=== PATIENT | male | born 1965 | race African-American/Black ===

== ENCOUNTER 2022-10-15 09:47 | Emergency (ER) | payer MEDICAID ==
[~2022-10-15] VITALS: Ht 175.3 cm; Wt 84.0 kg
[2022-10-15 09:51] VITALS: BP 154/87
[2022-10-15] MEDS ORDERED: IPRATROPIUM BROMIDE (0.02%) 0.5MG/2.5ML NEB HHN STA (09:59)
[2022-10-15] MEDS ORDERED: ALBUTEROL (0.083%) 2.5MG/3ML NEB HHN STA (09:59)
[2022-10-15] MEDS ORDERED: ASPIRIN 81MG TABLET PO ONE (10:00)
[2022-10-15 12:18] LABS: CHLORIDE 101 mEq/L (98-107)
[2022-10-15 12:27] LABS: BASOPHILS % 0.3 % (0.0-2.0); EOSINOPHILS % 0.7 % (0.0-5.0); HEMATOCRIT. 45.1 % (42.0-52.0); HEMOGLOBIN. 15.4 g/dL (14.0-18.0); MEAN CORPUSCULAR VOLUME 87.6 fL (80.0-94.0); MEAN PLATELET VOLUME 8.7 fl (7.4-10.4); MONOCYTES % 5.2 % (2.0-8.0); NEUTROPHILS % 63.8 % (40.0-76.0); PLATELET 269 x1000/uL (130-400); RED BLOOD CELL COUNT 5.15 mill/uL (4.7-6.1)
[2022-10-15] MEDS ORDERED: ASPIRIN 81MG TABLET PO NR (14:45)
[2022-10-15] MEDS ORDERED: ALBU90AE INH (15:19)
== END 2022-10-15 15:35 | disposition home or self-care (01) ==
LOC: ER 09:47
DX: J40 Bronchitis, not specified as acute or chronic (principal); E11.65 Type 2 diabetes mellitus with hyperglycemia; I10 Essential (primary) hypertension; Z79.899 Other long term (current) drug therapy
CPT/HCPCS: 36415; 71045; 80053; 83880; 84484; 85025; 93005; 94640; 99285; Z7610

== ENCOUNTER 2023-09-03 09:47 | Emergency (ER) | payer MEDICAID ==
[~2023-09-03] VITALS: Ht 172.7 cm; Wt 81.0 kg
[~2023-09-03 09:47] MED LIST: ALBU90AE INH
[2023-09-03 09:51] VITALS: O2SAT 98
[2023-09-03] MEDS ORDERED: ACETAMINOPHEN 325MG TABLET PO STA (12:02)
[2023-09-03] MEDS ORDERED: BACITRACIN ZINC OINT UDPKT TOP ONE (12:15)
[2023-09-03 14:19] LABS: CLARITY URINE CLEAR (CLEAR); COLOR URINE YELLOW (YELLOW); GLUCOSE URINE 3+ (NEGATIVE); KETONES URINE TRACE (NEGATIVE); LEUKOCYTE ESTERASE URINE NEGATIVE (NEGATIVE); NITRITE URINE NEGATIVE (NEGATIVE); OCCULT BLOOD URINE NEGATIVE (NEGATIVE); PH URINE 5.5 (4.5-8.0); PROTEIN URINE NEGATIVE (NEGATIVE); SPECIFIC GRAVITY URINE 1.019 (1.005-1.030)
[2023-09-03 14:34] LABS: SQUAMOUS EPITHELIAL CELL URINE FEW /lpf (RARE/1+)
[2023-09-03 14:35] LABS: BACTERIA URINE TRACE; RBC URINE 0-2 /hpf (0-2)
[2023-09-03] MEDS ORDERED: CLOT15CR27 TP (15:10)
[2023-09-03] MEDS ORDERED: NAPR-681 PO (15:10)
[2023-09-03] MEDS ORDERED: CEPH500C2 MT (15:10)
[2023-09-03 16:17] VITALS: BP 145/98; PULSE 98; RESP 18; TEMP 97.9
[2023-09-06 04:08] LABS: CHLAMYDIA TRACHOMATIS NAA Negative (Negative); NEISSERIA GONORRHOEAE NAA Negative (Negative)
== END 2023-09-03 16:19 | disposition home or self-care (01) ==
LOC: ER 09:47
DX: R51.9 Headache, unspecified (principal); I10 Essential (primary) hypertension; E11.9 Type 2 diabetes mellitus without complications; E78.00 Pure hypercholesterolemia, unspecified
CPT/HCPCS: 36415; 81003; 86592; 87491; 87591; 99283; 99284

== ENCOUNTER 2024-01-19 16:38 | Emergency (ER) | payer MEDICAID, OTHER ==
[~2024-01-19] VITALS: Ht 172.7 cm; Wt 89.0 kg
[~2024-01-19 16:38] MED LIST changes: +CEPH500C2 MT; +CLOT15CR27 TP; +NAPR-681 PO
[2024-01-19 16:41] VITALS: O2SAT 100
[2024-01-19 17:06] LABS: BASOPHILS % 0.8 % (0.0-2.0); EOSINOPHILS % 0.8 % (0.0-5.0); HEMATOCRIT. 40.5 % (42.0-52.0); HEMOGLOBIN. 14.2 g/dL (14.0-18.0); LYMPHOCYTES % 34.4 % (20.0-50.0); MEAN CORPUSCULAR HEMOGLOBIN 32.2 pg (28.0-32.0); MEAN CORPUSCULAR HGB CONC 35.1 g/dL (31.0-37.0); MEAN CORPUSCULAR VOLUME 91.8 fL (80.0-94.0); MONOCYTES % 6.2 % (2.0-8.0); NEUTROPHILS % 57.8 % (40.0-76.0); PLATELET 243 x1000/uL (130-400); RED BLOOD CELL COUNT 4.42 mill/uL (4.7-6.1); RED CELL DISTRIBUTION WIDTH 13.7 % (11.6-14.6); WHITE BLOOD COUNT 5.8 x1000/uL (4.5-11.0)
[2024-01-19 17:11] LABS: CHLORIDE 105 mEq/L (98-107); POTASSIUM 4.1 mEq/L (3.5-5.1); SODIUM 140 mEq/L (136-145)
[2024-01-19 17:12] LABS: CARBON DIOXIDE 28 mEq/L (21-32)
[2024-01-19 17:17] LABS: GLUCOSE 173 mg/dL (70-105); UREA NITROGEN BLOOD 8 mg/dL (9-23)
[2024-01-19 17:32] LABS: TROPONIN I HIGH SENSITIVITY < 4 ng/L (3.0-53)
[2024-01-19] MEDS ORDERED: IPRATROPIUM/ALBUTEROL 0.5-3(2.5)MG/3ML NEB HHN ONE (19:45)
[2024-01-19] MEDS ORDERED: P20 MT (20:20)
[2024-01-19] MEDS ORDERED: TOPUD MT (20:20)
[2024-01-19] MEDS ORDERED: IBUP-1523 MT (20:20)
[2024-01-19] MEDS ORDERED: ALBU90AE INH (20:20)
[2024-01-19] MEDS: PREDNISONE 20MG TABLET PO ONE (20:37)
[2024-01-19 20:38] VITALS: BP 138/80; PULSE 90; RESP 18; TEMP 98.5
[2024-01-19] MEDS: ACETAMINOPHEN 325MG TABLET PO ONE (20:38)
[2024-01-19 20:51] LABS: TROPONIN I HIGH SENSITIVITY < 4 ng/L (3.0-53)
== END 2024-01-19 20:40 | disposition home or self-care (01) ==
LOC: ER 16:38
DX: R07.89 Other chest pain (principal); J45.909 Unspecified asthma, uncomplicated; E11.9 Type 2 diabetes mellitus without complications; E78.00 Pure hypercholesterolemia, unspecified; I10 Essential (primary) hypertension
CPT/HCPCS: 99285; 71045; 80048; 83880; 85025; 84484; 93005; 36415; J7512

== ENCOUNTER 2025-03-07 13:11 | Emergency (ER) | payer OTHER ==
[~2025-03-07] VITALS: Ht 172.7 cm; Wt 95.0 kg
[~2025-03-07 13:11] MED LIST changes: +IBUP-1523 MT; +P20 MT; +TOPUD MT
[2025-03-07 13:16] VITALS: O2SAT 99
[2025-03-07 14:40] VITALS: BP 138/90; PULSE 94; RESP 16; TEMP 36.9; O2SAT 98
== END 2025-03-07 14:44 | disposition home or self-care (01) ==
LOC: ER 13:31
DX: J02.9 Acute pharyngitis, unspecified (principal); J45.901 Unspecified asthma with (acute) exacerbation; E11.9 Type 2 diabetes mellitus without complications; I10 Essential (primary) hypertension; E78.00 Pure hypercholesterolemia, unspecified; Z79.899 Other long term (current) drug therapy; Z98.890 Other specified postprocedural states
CPT/HCPCS: 99281; 99282